=== PATIENT | female | born 1990 | race Caucasian/White ===

== ENCOUNTER → 2017-07-27 | Day surgery (SDC) | payer OTHER ==
[~2017-07-27] MED LIST: FLU VACC QS2017-18 36 mo. & older 0.5 ML SYRINGE IM ONE
[2017-07-27 20:28] VITALS: BMI 31.6
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
== END ==
LOC: L&D/OP 19:24
PROVIDERS: ATTEND Obstetrics & Gynecology
DX: O30.043 Twin pregnancy, dichorionic/diamniotic, third trimester (principal); Z91.018 Allergy to other foods; Z87.891 Personal history of nicotine dependence; Z3A.34 34 weeks gestation of pregnancy
CPT/HCPCS: 87081; 87480; 87491; 87510; 87591; 87660

== ENCOUNTER → 2017-08-13 | Day surgery (SDC) | payer OTHER ==
[~2017-08-13] MED LIST changes: +Acetaminophen 500 MG TAB PO PRN; -FLU VACC QS2017-18 36 mo. & older 0.5 ML SYRINGE IM ONE; +Iron Sucrose Complex 500 MG in Sodium Chloride 0.9% 250 ML 250 ML IVPB SCH; +Lactated Ringer's 1,000 ML IV SCH
[2017-08-13 15:19] VITALS: BMI 29.3
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
== END ==
LOC: L&D/OP 12:36 → EEVIPCON 12:36
PROVIDERS: ATTEND Family Medicine
DX: O99.013 Anemia complicating pregnancy, third trimester (principal); O30.043 Twin pregnancy, dichorionic/diamniotic, third trimester; O9A.313 Physical abuse complicating pregnancy, third trimester; O99.333 Smoking (tobacco) complicating pregnancy, third trimester; O99.323 Drug use complicating pregnancy, third trimester; Z3A.37 37 weeks gestation of pregnancy; Z79.899 Other long term (current) drug therapy; Z87.59 Personal history of other complications of pregnancy, childbirth and the puerperium
CPT/HCPCS: 96361; 96365; 96366; J1756; J7050

== ENCOUNTER 2017-08-16 18:51 | Emergency (ER) | payer OTHER ==
[2017-08-16] MEDS ORDERED: Lidocaine 1% w/Epinephrine 1:200K 30 ML VIAL FS SCH (19:45)
[2017-08-16] MEDS ORDERED: Bupivacaine HCl 0.5%/Epinephrine 1:200,000/PF 30 ml Vial FS SCH (20:00)
[2017-08-16] MEDS ORDERED: Bupivacaine HCl 0.25%/Epi 0.0005/PF 10 ML VIAL FS SCH (20:00)
== END 2017-08-16 20:49 | disposition home or self-care (01) ==
LOC: ERS 18:51
DX: K03.81 Cracked tooth (principal)
CPT/HCPCS: J0670

== ENCOUNTER 2017-08-17 01:46 | Emergency (ER) | payer OTHER ==
[2017-08-17] MEDS ORDERED: Acetaminophen/Codeine 30-300mg Tablet ONE (02:56)
== END 2017-08-17 03:02 | disposition home or self-care (01) ==
LOC: ERS 01:46
DX: O99.613 Diseases of the digestive system complicating pregnancy, third trimester (principal); K03.81 Cracked tooth; K02.9 Dental caries, unspecified; Z3A.37 37 weeks gestation of pregnancy

== ENCOUNTER 2017-08-17 14:13 | Inpatient (IN) | payer OTHER ==
[~2017-08-17 14:13] MED LIST changes: -Acetaminophen 500 MG TAB PO PRN; -Iron Sucrose Complex 500 MG in Sodium Chloride 0.9% 250 ML 250 ML IVPB SCH; -Lactated Ringer's 1,000 ML IV SCH; +Lidocaine 2% PF 10 ML AMP (For Epidural Use) ONE
[2017-08-17 14:34] VITALS: BMI 29.5
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
[2017-08-17 15:42] LABS: Hematocrit 24.8 % (36.0-47.0); Mean Platelet Volume 6.4 fL (7.4-10.4); Red Blood Cell (RBC) Count 3.61 mill/uL (4.20-5.40); White Blood Cell (WBC) Count 11.6 thou/uL (4.8-10.8)
[2017-08-17 15:48] LABS: ALT (SGPT) 14 U/L (8-55); AST (SGOT) 15 U/L (5-34); Alkaline Phosphatase 221 U/L (40-150); Anion Gap 12 mmol/L (10-20); BUN (Urea Nitrogen) 8 mg/dL (7.0-18.7); Bilirubin, Total 0.3 mg/dL (0.2-1.2); Calc. Creatinine Clearance 163 mL/min (70-130); Calcium 8.1 mg/dL (7.8-10.44); Carbon Dioxide 23 mmol/L (22-29); Chloride 107 mmol/L (98-107); Estimated GFR-MDRD Greater than 90; Globulin 2.8 g/dL (2.4-3.5); Protein, Total 5.7 g/dL (6.0-8.3)
[2017-08-17] MEDS ORDERED: LR / Pitocin 40 units/1000 ml 1,000 ML IV PRN (15:53)
[2017-08-17] MEDS ORDERED: Acetaminophen 500 MG TAB PO PRN (15:53)
[2017-08-17] MEDS ORDERED: Ondansetron HCl/PF 4 MG/2 ML Vial IVP PRN ×2 (15:53→18:20)
[2017-08-17] MEDS ORDERED: Ibuprofen 800 MG TAB PO PRN (15:53)
[2017-08-17] MEDS ORDERED: Lidocaine 1% (PF) 30 ML VIAL SC PRN (15:53)
[2017-08-17] MEDS ORDERED: Promethazine HCl 25 MG/ML VIAL IM PRN ×2 (15:53→18:20)
[2017-08-17 15:59] LABS: #Lymphocytes 1.4 thou/uL (1.20-3.40); #Monocytes 0.4 thou/uL (0.11-0.59); #Neutrophils 9.7 thou/uL (1.40-6.50); %Basophils 0.3 % (0.0-1.0); %Eosinophils 0.2 % (0.0-10.0); %Monocytes 3.6 % (0.0-10.0); Anisocytosis SLIGHT = 6-15 cells (100X) (0-5/hpf); Hypochromia SLIGHT = 6-15 cells (100X) (0-5/hpf); Microcytosis SLIGHT = 6-15 cells (100X) (0-5/hpf); Polychromasia SLIGHT = 2-3 cells (100X) (0-2/hpf)
[2017-08-17] MEDS: Lactated Ringer's 1,000 ML IV SCH ×2 (16:30→18:19)
[2017-08-17] MEDS ORDERED: Fentanyl 4 mcg/Marc 0.1% Cadd 100 ML ONE (17:28)
[2017-08-17 17:51] LABS: Bilirubin Small (Negative); Blood, Urine Negative (Negative); Glucose, Urine (Dipstick) Negative (Negative); Ketone, Urine Negative (Negative); Nitrite Negative (Negative); Protein, Urine (Dipstick) 30 mg/dL (Neg-Trace)
[2017-08-17 17:53] LABS: Bacteria/HPF Rare-Few HPF (None Seen); Hyaline Casts/LPF 0-3 HYALINE CAST LPF (0-3 Hyaline); RBC/HPF 0-3 HPF (0-3); Squamous Epithelial 0-3 HPF (0-3)
[2017-08-17 18:01] LABS: Amphetamine Not Detected (NotDetected); Methadone Not Detected (NotDetected); Methamphetamine Not Detected (NotDetected)
[2017-08-17] MEDS ORDERED: Eucerin (Mineral Oil/Petrolatum,White) 30 gm Jar TOP PRN (18:20)
[2017-08-17] MEDS ORDERED: ePHEDrine/0.9% NaCl/PF SYRINGE 50 mg/10 ml SLOW IVP PRN (18:20)
[2017-08-17] MEDS ORDERED: diphenhydrAMINE 50 MG/ML VIAL IVP PRN (18:20)
[2017-08-17] MEDS ORDERED: Lactated Ringer's 500 ML IV PRN (18:20)
[2017-08-17] MEDS ORDERED: Naloxone HCl 0.4 mg/ml Vial IVP PRN ×2 (18:20)
--- NOTE | 2017-08-17 18:23 | ULT ---
ULTRASOUND PELVIC OB COMPLETE STANDARD: Date: 08/17/17 HISTORY: Twin . Inadequate care. COMPARISON: None. TECHNIQUE: Real-time Bates scale and color evaluation of the gravid uterus was performed with the curvilinear tr ansducer. FINDINGS: There is a twin . Twin A: heart rate documented at 143 beats/minute. The head, cerebellum, four chamber heart, stomach, cord insertion, bladder, and three vessel cord are all unremarkable. Placenta is fundal. Estimated f etal weight is 2874 gm. Estimated weight is 25th percentile. Amniotic fluid index is 12.4 cm. BPD: 36 weeks/6 days, 9.08 cm HC: 36 weeks/5 days, 32.41 cm AC: 36 weeks/1 day, 21.17 cm FL: 36 weeks/0 days, 7.01 cm Twin B: Estimated weight of 2786 gm. The head, four chamber heart, stomach, kidneys, cord insertion, a nd bladder are unremarkable. Three vessel cord is not well seen. Estimated weight is 18th perc entile. The heart rate is 132 beats/minute. BPD: 36 weeks/1 day, 8.93 cm HC: 37 weeks/0 days, 32.65 cm AC: 35 weeks/3 days, 31.54 cm FL: 36 weeks/0 days, 7.03 cm IMPRESSION: 1. Viable twin with similar weights, which are lower percentile. Twin A has a weigh t of 2874 gm, 25th percentile. Twin B has a weight of 2786 gm, 18th percentile. 2. Poorly seen three vessel cord in Twin B. 3 Twin A has average ultrasound age of 36 weeks/3 days with estimated date of delivery of 09/11/17. Twin B has average ultrasound age of 36 weeks/1 day with estimated date of delivery of 09/13/17. Th is is concordant with the clinical age. POS: [facility]
[2017-08-17] MEDS ORDERED: Fentanyl 4mcg/Marcaine 0.1% Cassette 100 ML EPIDURAL SCH (18:30)
[2017-08-17] MEDS ORDERED: Communication Order-Pharmacy FS SCH (18:30)
[2017-08-17] MEDS: Penicillin V Potassium 250 MG TAB PO SCH (18:46)
--- NOTE | 2017-08-17 19:15 | PDOC.LDPN ---
Labor & Delivery Progress Note - Subjective Subjective: comfortable - Objective Vital signs reviewed and normal: yes (Elevated BPs however All pressures less than 160/110 except for 3 isolated pressures while pt was sitting up for epidural.) General: NAD, resting, breathing through contractions Uterine fundus: non tender Dilation: 7 Effacement: 75% Station: -1 FHT: category 1 (twin A: 150 Twin B: 135, moderate variability. ) [place] contractions every: 2-3 min AROM: clear fluid - Assessment (1) Dichorionic diamniotic twin in third trimester Code(s): O30.043 - TWIN , DICHORIONIC/DIAMNIOTIC, THIRD TRIMESTER Status: Acute (2) Preeclampsia Code(s): O14.90 - UNSPECIFIED PRE-ECLAMPSIA, UNSPECIFIED TRIMESTER Status: Acute (3) Anemia affecting in third trimester Code(s): O99.013 - ANEMIA COMPLICATING , THIRD TRIMESTER Status: Acute (4) Hx of drug abuse Code(s): Z87.898 - PERSONAL HISTORY OF OTHER SPECIFIED CONDITIONS Status: Acute (5) Hx of chlamydia infection Code(s): Z86.19 - PERSONAL HISTORY OF OTHER INFECTIOUS AND PARASITIC DISEASES Status: Acute (6) Infected tooth Code(s): K04.7 - PERIAPICAL ABSCESS WITHOUT SINUS Status: Acute Plan: continue plan of care -: 26 yr old at 37.3 wks by 17.3 wk US here for labor and found to have elevated pressures with preeclampsia 1. di/di twin gestation- in active labor, AROM of twin A at 1834 with clear fluid. Category 1 strip. Cont current mgmt without additional augmentation of labor. 2. Pre-eclampsia- asymptomatic, LFTs wnl, plts wnl. Protein/ creatinine ration .30. No severe range pressures except 3 isolated presures around epidural placement and patient sitting up. Con to monitor pressures. No indication for mag at this time. 3. GBS negative 4. asymptomatic anemia of - 2 units PRBC ready. 5. hx of chlamydia treated with neg myrna 6. ecoli bacteruria treated with neg Myrna. 7. Hx of meth use in - negative UDS at admission except opiates which she was given tylenol 3 in ER earlier this morning. Will get UDS and meconium on babies. CPS and CM consulted. 8. tooth infection- cont abx PP. <Nettie Sanchez - Last Filed: 08/17/17 19:05> Attending Addendum - Attending Addendum I personally evaluated the patient and discussed the management with Dr. Sanchez I agree with the History, Examination, Assessment and Plan documented above with any addition or exceptions noted below. Category 1 strip x2. Ctxn's regular. BP's not severe. No severe symptoms continue current mgt. <Davian Evans - Last Filed: 08/20/17 08:43>
[2017-08-17] MEDS ORDERED: LR 500 ML/Oxytocin 10 units 500 ML ONE (20:44)
--- NOTE | 2017-08-17 20:45 | PDOC.LDPN ---
Labor & Delivery Progress Note - Subjective Subjective: comfortable, loss of fluid - Objective Vital signs reviewed and normal: yes General: NAD, resting Dilation: 8 Effacement: 75% Station: -1 FHT: category 1 [place] contractions every: 2-3 min IUPC placed: yes - Assessment (1) Dichorionic diamniotic twin in third trimester Code(s): O30.043 - TWIN , DICHORIONIC/DIAMNIOTIC, THIRD TRIMESTER Status: Acute (2) Preeclampsia Code(s): O14.90 - UNSPECIFIED PRE-ECLAMPSIA, UNSPECIFIED TRIMESTER Status: Acute (3) Anemia affecting in third trimester Code(s): O99.013 - ANEMIA COMPLICATING , THIRD TRIMESTER Status: Acute (4) Hx of drug abuse Code(s): Z87.898 - PERSONAL HISTORY OF OTHER SPECIFIED CONDITIONS Status: Acute (5) Hx of chlamydia infection Code(s): Z86.19 - PERSONAL HISTORY OF OTHER INFECTIOUS AND PARASITIC DISEASES Status: Acute (6) Infected tooth Code(s): K04.7 - PERIAPICAL ABSCESS WITHOUT SINUS Status: Acute -: 26 yr old at 37.3 wks by 17.3 wk US here for labor and found to have elevated pressures with preeclampsia 1. di/di twin gestation- in active labor, AROM of twin A at 1834 with clear fluid. Category 1 strip. IUPC placed and [place] units <200. Will start pitocin. 2. Pre-eclampsia- asymptomatic, LFTs wnl, plts wnl. Protein/ creatinine ration 0.30. No severe range pressures except 3 isolated presures around epidural placement and patient sitting up. Con to monitor pressures. No indication for mag at this time. 3. GBS negative 4. asymptomatic anemia of - 2 units PRBC ready. 5. hx of chlamydia treated with neg myrna 6. ecoli bacteruria treated with neg Myrna. 7. Hx of meth use in - negative UDS at admission except opiates which she was given tylenol 3 in ER earlier this morning. Will get UDS and meconium on babies. CPS and CM consulted. 8. tooth infection- cont abx PP.
[2017-08-17] MEDS ORDERED: Labetalol HCl 100 MG/20 ML VIAL SLOW IVP SCH (22:00)
[2017-08-17] MEDS ORDERED: Magnesium Sulfate 6 GM in Sodium Chloride 0.9% 250 ML 250 ML IVPB SCH (22:15)
[2017-08-17] MEDS ORDERED: Calcium Gluconate 4.6 MEQ in Sodium Chloride 0.9% 100 ML IVPB PRN (22:15)
[2017-08-17] MEDS ORDERED: Magnesium Sulfate 20 GM/WATER 500 ML BAG IVPB SCH (22:30)
[2017-08-17] MEDS ORDERED: LR / Pitocin 40 units/1000 ml 1,000 ML ONE (22:44)
[2017-08-17] MEDS ORDERED: Bisacodyl 10 MG SUPP PR PRN (23:08)
[2017-08-17] MEDS ORDERED: Preparation H Ointment 28 GM TUBE PR PRN (23:08)
[2017-08-17] MEDS ORDERED: Lanolin Ointment 7 GM TUBE TOP PRN (23:08)
[2017-08-17] MEDS ORDERED: Milk Of Magnesia 30 ML UDCUP PO PRN (23:08)
[2017-08-17] MEDS ORDERED: Benzocaine/Menthol 20-0.5% 60 ML CAN TOP PRN (23:08)
[2017-08-17] MEDS ORDERED: LR / Pitocin 40 units/1000 ml 1,000 ML IV SCH (23:15)
[2017-08-17 23:55] LABS: #Lymphocytes 2.2 thou/uL (1.20-3.40); #Monocytes 0.5 thou/uL (0.11-0.59); %Basophils 0.2 % (0.0-1.0); %Eosinophils 0.1 % (0.0-10.0); %Lymphocytes 13.8 % (21.0-51.0); %Monocytes 3.4 % (0.0-10.0); Hematocrit 25.9 % (36.0-47.0); Mean Platelet Volume 6.9 fL (7.4-10.4); Red Blood Cell (RBC) Count 3.81 mill/uL (4.20-5.40); White Blood Cell (WBC) Count 15.8 thou/uL (4.8-10.8)
[2017-08-17] MEDS ORDERED: Adacel (T-DAP) 0.5 ML VIAL IM ONE (23:59)
[2017-08-17] MEDS ORDERED: LR 500 ML/Oxytocin 10 units 500 ML IV SCH (23:59)
[2017-08-18] MEDS: Penicillin V Potassium 250 MG TAB PO SCH ×4 (00:28→17:41)
[2017-08-18] MEDS: Ibuprofen 600 MG TAB PO SCH ×3 (00:51→13:57)
[2017-08-18] MEDS: Magnesium Sulfate 20 gm/500 ml 20 GM/500 ML BAG IVPB SCH ×2 (01:00→07:55)
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
--- NOTE | 2017-08-18 05:59 | PDOC.PP ---
Post Progress Note Post Day #: 1 Subjective: 26 yo now . Was recently diagnose with preeclampsia with severe features. Had elevated protein/cr ratio and then had a BP with systolic above 160. She recently delivered Keturah Twins. Was started on magnesium. At time of checking patient, she was sleeping in bed. She was tired and would wake up and fall asleep Vital Signs (12 hours) Temp Pulse Resp 08/18/17 02:00 98.4 F 95 20 08/18/17 01:52 95 08/17/17 19:00 98.4 F 95 20 Weight Weight 78.018 kg - Physical Examination General: NAD Cardiovascular: no m/r/g, RRR Abdominal: + bowel sounds Neurological: no gross focal deficits Deviation from normal: Not hyperreflexive Psychiatric: A&Ox3 Result Diagrams: 08/17/17 23:37 08/17/17 15:18 Additional Labs: Post Labs Blood Type A POSITIVE 08/17/17 15:18 (1) Dichorionic diamniotic twin in third trimester Code(s): O30.043 - TWIN , DICHORIONIC/DIAMNIOTIC, THIRD TRIMESTER Status: Acute Comment: -Pt recently delivered -Pt resting at this time. -No excessive bleeding. Pain being controlled at this time (2) Preeclampsia Code(s): O14.90 - UNSPECIFIED PRE-ECLAMPSIA, UNSPECIFIED TRIMESTER Status: Acute Qualifiers: Qualified Code(s): O14.93 - Unspecified pre-eclampsia, third trimester Comment: -Pt had elevated SBP above 160, Pre eclampsia w/ severe features -Denies any sx's at this time -Is currently receiving magnesium -Pt is not hyperreflexive at this time. Reflexes intact. -Pt has normal sensation. No neuro defecit noted at this time -Will continue with reflex checks every 4 hours - Assessment/Plan -Will check reflexes and assess for magnesium toxcicity at 7:00
[2017-08-18] MEDS: Acetaminophen 325 MG TAB PO PRN ×3 (06:00→15:26)
[2017-08-18] MEDS ORDERED: Benzocaine (Dental) 20% 10 gm Tube TOP PRN (06:23)
[2017-08-18 08:40] LABS: Hematocrit 26.4 % (36.0-47.0); Mean Platelet Volume 6.6 fL (7.4-10.4); Red Blood Cell (RBC) Count 3.85 mill/uL (4.20-5.40)
[2017-08-18] MEDS: Prenatal Vitamin 1 TAB PO SCH (08:42)
[2017-08-18] MEDS: Docusate (Surfak) 240 MG CAP PO SCH (08:42)
--- NOTE | 2017-08-18 11:25 | PDOC.PP ---
Post Progress Note Post Day #: 1 Subjective: Patient doing well. Minimal headache this morning that resolved with norco. Suspected to be 2/2 tooth infection. She has been on magnesium for preeclampsia with one severe range blood pressure. She denies scotoma, abdominal pain. Baseline edema still present. PO intake tolerated: yes Ambulation: no Vital Signs (12 hours) Temp Pulse Resp BP 08/18/17 07:59 97.9 F 73 20 08/18/17 07:00 97.9 F 73 20 131/85 08/18/17 04:30 97.6 F 95 20 08/18/17 02:00 98.4 F 95 20 08/18/17 01:52 95 Weight Weight 78.018 kg - Physical Examination General: NAD Cardiovascular: no m/r/g, RRR Respiratory: clear to auscultation bilaterally, non-labored breathing Abdominal: + bowel sounds, lochia (decreased), no distention, appropriately TTP Fundus firm & at: umbilicus Extremities: negative homans (B) Skin: CS incision dry & intact Neurological: no gross focal deficits Deviation from normal: brachialis reflex 2+ Psychiatric: A&Ox3, normal affect Result Diagrams: 08/18/17 08:28 08/17/17 15:18 Additional Labs: Post Labs Blood Type A POSITIVE 08/17/17 15:18 (1) Dichorionic diamniotic twin in third trimester Code(s): O30.043 - TWIN , DICHORIONIC/DIAMNIOTIC, THIRD TRIMESTER Status: Acute (2) Preeclampsia Code(s): O14.90 - UNSPECIFIED PRE-ECLAMPSIA, UNSPECIFIED TRIMESTER Status: Acute Qualifiers: Qualified Code(s): O14.93 - Unspecified pre-eclampsia, third trimester (3) Anemia affecting in third trimester Code(s): O99.013 - ANEMIA COMPLICATING , THIRD TRIMESTER Status: Acute (4) Hx of drug abuse Code(s): Z87.898 - PERSONAL HISTORY OF OTHER SPECIFIED CONDITIONS Status: Acute (5) Hx of chlamydia infection Code(s): Z86.19 - PERSONAL HISTORY OF OTHER INFECTIOUS AND PARASITIC DISEASES Status: Acute (6) Infected tooth Code(s): K04.7 - PERIAPICAL ABSCESS WITHOUT SINUS Status: Acute - Assessment/Plan 26 yr old s/p at 37.3 wks now post day 1 1. di/di twin gestation- of each twin. doing well. tolerating clear liquid diet. Is very hungry. lochia down. pain well controlled. well. 2. Pre-eclampsia with severe features- asymptomatic, LFTs wnl, plts wnl. Protein / creatinine ration 0.30. After 1 severe range pressure, decision made to initiate magnesium protocol for pre-e with severe features. Patient doing well with no pressures above 160/110 and good diuresis since delivery. (160 ml in an hr this AM) so will plan to stop mag at 12 hours. 3. GBS negative 4. asymptomatic anemia of - Hgb improved this AM from 7.9 to 8.3. Will initiate Iron BID. 5. hx of chlamydia treated with neg myrna 6. ecoli bacteruria treated with neg Myrna. 7. Hx of meth use in - negative UDS at admission except opiates which she was given tylenol 3 in ER earlier this morning. meconium pending on babies, however UDS on infants is opiate +. CPS and CM consulted on case. 8. tooth infection- cont abx PP. ibuprofen and norco for pain. 9. permanent sterilization desired- will discuss tomorrow and at follow up appt at [facility]
[2017-08-18] MEDS: Ferrous Sulfate 325 MG TAB PO SCH ×2 (12:14→17:41)
[2017-08-18] MEDS ORDERED: Magnesium Sulfate 20 GM/WATER 500 ML BAG IVPB SCH (12:15)
[2017-08-18] MEDS ORDERED: HYDROcodone/Acetaminophen 5/325 mg Tablet PO PRN (17:27)
[2017-08-18] MEDS ORDERED: Magnesium Sulfate 20 gm/500 ml 20 GM/500 ML BAG IVPB SCH (17:30)
[2017-08-19] MEDS: Ibuprofen 600 MG TAB PO SCH ×4 (00:23→11:47)
[2017-08-19] MEDS: Penicillin V Potassium 250 MG TAB PO SCH ×3 (00:23→11:47)
[2017-08-19] MEDS: Prenatal Vitamin 1 TAB PO SCH (08:28)
[2017-08-19] MEDS: Docusate (Surfak) 240 MG CAP PO SCH (08:28)
[2017-08-19] MEDS: Ferrous Sulfate 325 MG TAB PO SCH (08:28)
--- NOTE | 2017-08-19 10:09 | PDOC.PP ---
Post Progress Note Post Day #: 2 Subjective: Patient is doing well. Pain well controlled. well. lochia decreased. She desires permanent contraception and will be discussed at follow up [facility]. PO intake tolerated: yes Flatus: yes Ambulation: yes Vital Signs (12 hours) Temp Pulse Resp BP Pulse Ox 08/19/17 04:00 99.0 F 77 20 134/71 08/19/17 02:18 98.5 F 74 18 08/19/17 01:50 98.5 F 74 18 131/82 98 Weight Weight 78.018 kg - Physical Examination General: NAD Cardiovascular: no m/r/g, RRR Respiratory: clear to auscultation bilaterally, non-labored breathing Abdominal: + bowel sounds, lochia (decreased), appropriately TTP Fundus firm & at: umbilicus Extremities: negative homans (B) Neurological: no gross focal deficits Psychiatric: A&Ox3, normal affect Result Diagrams: 08/18/17 08:28 08/17/17 15:18 Additional Labs: Post Labs Blood Type A POSITIVE 08/17/17 15:18 (1) Dichorionic diamniotic twin in third trimester Code(s): O30.043 - TWIN , DICHORIONIC/DIAMNIOTIC, THIRD TRIMESTER Status: Resolved (2) Preeclampsia Code(s): O14.90 - UNSPECIFIED PRE-ECLAMPSIA, UNSPECIFIED TRIMESTER Status: Acute (3) Anemia affecting in third trimester Code(s): O99.013 - ANEMIA COMPLICATING , THIRD TRIMESTER Status: Acute (4) Hx of drug abuse Code(s): Z87.898 - PERSONAL HISTORY OF OTHER SPECIFIED CONDITIONS Status: Resolved (5) Hx of chlamydia infection Code(s): Z86.19 - PERSONAL HISTORY OF OTHER INFECTIOUS AND PARASITIC DISEASES Status: Resolved (6) Infected tooth Code(s): K04.7 - PERIAPICAL ABSCESS WITHOUT SINUS Status: Acute - Assessment/Plan 26 yr old s/p at 37.3 wks now post day 2 1. di/di twin gestation delivered- Doing well, plan for possible discharge later today. Will send ibuprofen for pain. She will have follow up in 2 weeks at [facility]. 2. Pre-eclampsia with severe features now s/p 24 hrs of magnesium. Good diuresis and pressures have been well controlled in 130s/70-80s. 3. GBS negative 4. asymptomatic anemia of - cont iron BID with colace and docusate sent for PRN use. 5. hx of chlamydia treated with neg myrna 6. ecoli bacteruria treated with neg Myrna. 7. Hx of meth use in - negative UDS at admission except opiates which she was given tylenol 3 in ER earlier this morning. meconium pending on babies, however UDS on infants is opiate +. CPS and CM consulted on case and plan for babies to go home with mom since she is in a better situation now in [facility] home and removed from presumed source of drugs. She will cont to be followed by her case planner outpatient. 8. tooth infection- cont abx PP. ibuprofen and norco for pain. 9. permanent sterilization desired- she is considering Nexplanon, BTL, or essure and will f/u in [facility] to discuss.
[2017-08-19 10:32] VITALS: TEMP 98.5
[2017-08-19 11:17] VITALS: BP 135/74
== END 2017-08-19 14:10 | disposition home or self-care (01) | DRG 775 ==
LOC: L&D/OP 14:13 → L&D 21:03 → 3SW 08-19 01:49
PROVIDERS: ADMIT Family Medicine; ATTEND Family Medicine
PROC: 10E0XZZ Delivery of Products of Conception, External Approach (ICD-10-PCS; principal; 2017-08-17)
PROC: 10907ZC Drainage of Amniotic Fluid, Therapeutic from Products of Conception, Via Natural or Artificial Opening (ICD-10-PCS; 2017-08-17)
DX: O14.14 Severe pre-eclampsia complicating childbirth (principal); O99.324 Drug use complicating childbirth; O30.043 Twin pregnancy, dichorionic/diamniotic, third trimester; Z37.2 Twins, both liveborn; O99.02 Anemia complicating childbirth; F15.10 Other stimulant abuse, uncomplicated; D50.9 Iron deficiency anemia, unspecified; K04.7 Periapical abscess without sinus; Z86.19 Personal history of other infectious and parasitic diseases; Z3A.39 39 weeks gestation of pregnancy
CPT/HCPCS: 36415; 64400; 76805; 76815; 80053; 80306; 81001; 82570; 84156; 85025; 85027; 86780; 86850; 86900; 86901; 88307; 99283; J0670; J1200; J2001; J3475; J7120